=== PATIENT | male | born 1990 | race African-American/Black ===

== ENCOUNTER 2016-07-12 00:17 | Emergency (ER) | payer OTHER ==
[2016-05-10 15:18] VITALS: BP 141/71
[~2016-07-12] VITALS: Ht 167.6 cm; Wt 95.7 kg
[~2016-07-12 00:17] MED LIST: DIPH25CA58 PO; HYDR1TAB10 PO; ONDA8TAB12 PO; PRED50TA PO; RANI150T6 PO
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
[2016-07-12] MEDS ORDERED: IPRATRPIUM/ALBUTEROL 0.5/2.5MG 3 ML NEBU. NEB ONE (01:00)
== END 2016-07-12 01:25 | disposition home or self-care (01) ==
LOC: ER 00:17
DX: R06.02 Shortness of breath (principal); R05 Cough; R42 Dizziness and giddiness; R09.89 Other specified symptoms and signs involving the circulatory and respiratory systems; J45.909 Unspecified asthma, uncomplicated; F32.9 Major depressive disorder, single episode, unspecified; F41.9 Anxiety disorder, unspecified; F17.200 Nicotine dependence, unspecified, uncomplicated
CPT/HCPCS: 94640; 99283; J7620

== ENCOUNTER 2016-08-29 13:37 | Emergency (ER) | payer OTHER ==
[~2016-08-29] VITALS: Ht 167.6 cm; Wt 88.5 kg
[2016-08-29 13:47] VITALS: BP 132/75
--- NOTE | 2016-08-29 14:13 | RAD ---
Examination: Acute abdomen series. History: History of abdominal pain Comparison: None available Findings: Low lung volumes and technique accentuates heart size and pulmonary vascularity. There is no acute infiltrate or visualized pneumothorax identified. No evidence of free air noted in the hemidiaphragms. The bowel gas pattern appears unremarkable. Feces and gas noted in the colon. Impression: 1. No acute cardiopulmonary findings. 2. Unremarkable bowel gas pattern.
[2016-08-29 14:34] LABS: BILIRUBIN,URINE NEG (NEG); CLARITY,URINE CLEAR; COLOR,URINE YELLOW; GLUCOSE,URINE NEG (NEG)
[2016-08-29 14:35] LABS: BACTERIA,URINE 0 /HPF (0-FEW); NITRITE,URINE NEG (NEG); RBC,URINE 0 /HPF (0-2); UROBILINOGEN,URINE 0.2 mg/dL (0.2 mg/dL); WBC,URINE 0 /HPF (0-4)
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
[2016-08-29] MEDS ORDERED: cefTRIAXone IM 250 MG VIAL IM ONE (15:15)
[2016-08-29] MEDS ORDERED: AZITHROMYCIN 1 GM PACKET PO ONE (15:15)
== END 2016-08-29 15:04 | disposition home or self-care (01) ==
LOC: ER 13:37
DX: R10.32 Left lower quadrant pain (principal); R30.0 Dysuria; Z91.013 Allergy to seafood
CPT/HCPCS: 74022; 81001; 96372; 99285; J0456; J0696